=== PATIENT | female | born 2005 | race Caucasian/White ===

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

== ENCOUNTER 2023-03-02 06:06 | Emergency (ER) | payer MEDICAID ==
[~2023-03-02] VITALS: Ht 160 cm; Wt 59.1 kg
[~2023-03-02 06:06] MED LIST changes: +NITR100C6 PO; +PNV1CAPS PO
[2023-03-02 07:41] VITALS: BP 109/77
== END 2023-03-02 07:33 | disposition home or self-care (01) ==
LOC: ER 06:06
DX: O26.892 Other specified pregnancy related conditions, second trimester (principal); R10.9 Unspecified abdominal pain; Z3A.17 17 weeks gestation of pregnancy; Z79.899 Other long term (current) drug therapy; W18.39XA Other fall on same level, initial encounter; Y93.89 Activity, other specified; Y92.89 Other specified places as the place of occurrence of the external cause; Y99.8 Other external cause status
CPT/HCPCS: 99284

== ENCOUNTER 2023-03-17 20:42 | Emergency (ER) | payer MEDICAID ==
[~2023-03-17] VITALS: Ht 160 cm; Wt 56.8 kg
[2023-03-17] MEDS ORDERED: normal saline 1000ML IV soln IVB ONE (22:10)
[2023-03-17] MEDS ORDERED: meclizine 12.5mg tablet PO ONE (22:10)
[2023-03-17 22:14] VITALS: BP 97/54
[2023-03-17] MEDS ORDERED: carbamide peroxide 15ml bottle EACH EAR ONE (22:55)
[2023-03-17] MEDS ORDERED: MECL-159 PO (22:58)
== END 2023-03-17 23:56 | disposition home or self-care (01) ==
LOC: ER 20:42
DX: O26.892 Other specified pregnancy related conditions, second trimester (principal); R53.83 Other fatigue; H61.23 Impacted cerumen, bilateral; E86.0 Dehydration; Z79.899 Other long term (current) drug therapy; Z3A.20 20 weeks gestation of pregnancy
CPT/HCPCS: 82948; 99283; J7030; J8597

== ENCOUNTER 2023-12-29 00:38 | Emergency (ER) | payer MEDICAID ==
[~2023-12-29] VITALS: Ht 160 cm; Wt 67.7 kg
[~2023-12-29 00:38] MED LIST changes: +MECL-302 PO
[2023-12-29 01:02] VITALS: BP 124/78; PULSE 98; RESP 17; TEMP 99.4; O2SAT 100
[2023-12-29 01:14] LABS: EOSINOPHILS # (AUTO) 0.1 X10'3 (0-0.9); EOSINOPHILS % (AUTO) 1.7 % (0-6); MEAN PLATELET VOLUME 9.1 FL (7.4-10.4); MONOCYTES # (AUTO) 0.4 X10'3 (0-0.9); RED CELL DISTRIBUTION WIDTH 12.9 % (11.5-14.5)
[2023-12-29 01:17] LABS: BASOPHILS # (AUTO) 0.1 X10'3 (0-0.2); BASOPHILS % (AUTO) 0.9 % (0-1); HEMATOCRIT 40.7 % (35.0-45.0); HEMOGLOBIN 14.2 g/dl (12.0-16.0); LYMPHOCYTES # (AUTO) 2.8 X10'3 (1.1-4.8); LYMPHOCYTES % (AUTO) 39.3 % (21-51); MEAN CORPUSCULAR HEMOGLOBIN 31.1 PG (27.0-31.0); MEAN CORPUSCULAR HGB CONC 34.8 g/dL (33.0-36.5); MEAN CORPUSCULAR VOLUME 89.2 FL (78-98); MONOCYTES % (AUTO) 6.3 % (2-12); NEUTROPHILS # (AUTO) 3.7 X10'3 (1.8-7.7); NEUTROPHILS % (AUTO) 51.8 % (42-75); PLATELET COUNT 286 X10'3 (140-440); RED BLOOD COUNT 4.57 X10'6 (4.20-5.60); WHITE BLOOD COUNT 7.1 X10'3 (4.5-11.0)
[2023-12-29 01:26] LABS: GLUCOSE 97 MG/DL (70-104); POTASSIUM 3.5 MMOL/L (3.5-5.1); SODIUM 138 MMOL/L (135-145)
[2023-12-29 01:27] LABS: ALANINE AMINOTRANSFERASE 302 U/L (12-78); ALBUMIN 3.7 G/DL (3.4-5.0); ALBUMIN/GLOBULIN RATIO 0.9 (1.1-1.5); ALKALINE PHOSPHATASE 165 IU/L (20-180); ANION GAP 10 (8-16); ASPARTATE AMINO TRANSFERASE 120 U/L (10-37); BILIRUBIN,TOTAL 0.6 MG/DL (0.1-1.0); BLOOD UREA NITROGEN 10 MG/DL (7-18); BUN/CREATININE RATIO 15.9 (10.0-20.0); CALCIUM 9.2 MG/DL (8.5-10.1); CHLORIDE 105 MMOL/L (99-107); CREATININE 0.63 MG/DL (0.40-0.90); TOTAL CARBON DIOXIDE 23.2 MMOL/L (24-32); TOTAL PROTEIN 7.8 G/DL (6.4-8.2); eCRCL 118 ML/MIN; eGFR > 90 ML/MIN
[2023-12-29 01:33] LABS: PRO BRAIN NATRIURETIC PEPTIDE 36 PG/ML (0-125)
== END 2023-12-29 06:49 | disposition left against medical advice (07) ==
LOC: ER 00:38
DX: R07.89 Other chest pain (principal); Z53.21 Procedure and treatment not carried out due to patient leaving prior to being seen by health care provider
CPT/HCPCS: 80053; 83880; 84484; 85025; 93005; 99281

== ENCOUNTER 2024-01-08 21:41 | Emergency (ER) | payer MEDICAID ==
[~2024-01-08] VITALS: Ht 160 cm; Wt 67.4 kg
[2024-01-08] MEDS: Cipro HC otic suspension 10ML bottle LEFT EAR STA (22:40)
[2024-01-08 23:38] VITALS: BP 108/69; PULSE 81; RESP 16; TEMP 97.8; O2SAT 100
== END 2024-01-08 23:42 | disposition home or self-care (01) ==
LOC: ER 21:42
DX: H60.92 Unspecified otitis externa, left ear (principal); Z88.8 Allergy status to other drugs, medicaments and biological substances; Z79.899 Other long term (current) drug therapy
CPT/HCPCS: 99282

== ENCOUNTER 2024-02-28 09:47 | Emergency (ER) | payer MEDICAID ==
[~2024-02-28] VITALS: Ht 160 cm; Wt 68.3 kg
[2024-02-28 10:02] VITALS: BP 123/76; PULSE 89; RESP 18; TEMP 97.8; O2SAT 100
[2024-02-28] MEDS ORDERED: AMOX-117 PO (10:34)
[2024-02-28] MEDS ORDERED: HYDR-3965 PO (10:34)
== END 2024-02-28 11:03 | disposition home or self-care (01) ==
LOC: ER 09:48
DX: K04.7 Periapical abscess without sinus (principal); Z88.8 Allergy status to other drugs, medicaments and biological substances; Z79.899 Other long term (current) drug therapy
CPT/HCPCS: 99283

== ENCOUNTER 2024-04-13 06:19 | Inpatient (IN) | payer MEDICAID ==
[2024-04-13] VITALS (7 sets, daily range): BP systolic 101–129; BP diastolic 56–81; PULSE 14–99; RESP 14–16; TEMP 97.3–98.2; O2SAT 98–100
[~2024-04-13] VITALS: Ht 160 cm; Wt 70.5 kg
[2024-04-13 06:57] LABS: BASOPHILS # (AUTO) 0.1 X10'3 (0-0.2); BASOPHILS % (AUTO) 0.7 % (0-1); EOSINOPHILS # (AUTO) 0.1 X10'3 (0-0.9); EOSINOPHILS % (AUTO) 1.4 % (0-6); HEMATOCRIT 42.8 % (35.0-45.0); HEMOGLOBIN 14.7 g/dl (12.0-16.0); LYMPHOCYTES # (AUTO) 2.2 X10'3 (1.1-4.8); LYMPHOCYTES % (AUTO) 28.4 % (21-51); MEAN CORPUSCULAR HEMOGLOBIN 31.2 PG (27.0-31.0); MEAN CORPUSCULAR HGB CONC 34.4 g/dL (33.0-36.5); MEAN CORPUSCULAR VOLUME 90.8 FL (78-98); MEAN PLATELET VOLUME 8.9 FL (7.4-10.4); MONOCYTES # (AUTO) 0.5 X10'3 (0-0.9); MONOCYTES % (AUTO) 6.6 % (2-12); NEUTROPHILS # (AUTO) 4.8 X10'3 (1.8-7.7); NEUTROPHILS % (AUTO) 62.9 % (42-75); PLATELET COUNT 286 X10'3 (140-440); RED BLOOD COUNT 4.71 X10'6 (4.20-5.60); RED CELL DISTRIBUTION WIDTH 12.9 % (11.5-14.5); WHITE BLOOD COUNT 7.7 X10'3 (4.5-11.0)
[2024-04-13 07:03] LABS: URINE HCG NEGATIVE (NEG)
[2024-04-13 07:05] LABS: BILIRUBIN,URINE NEGATIVE (Neg); CLARITY,URINE CLEAR (Clear); COLOR,URINE YELLOW (Yellow); GLUCOSE, URINE NEGATIVE (Neg); KETONES,URINE NEGATIVE (Neg); LEUKOCYTE ESTERASE ,URINE SMALL (Neg); NITRITES, URINE NEGATIVE (Neg); OCCULT BLOOD,URINE NEGATIVE (Neg); PROTEIN,URINE NEGATIVE (Neg)
[2024-04-13 07:09] LABS: UA COLLECTION TYPE CLN CATCH MIDSTREAM
[2024-04-13 07:14] LABS: ALANINE AMINOTRANSFERASE 398 U/L (12-78); ALBUMIN 3.7 G/DL (3.4-5.0); ALBUMIN/GLOBULIN RATIO 0.9 (1.1-1.5); ALKALINE PHOSPHATASE 143 IU/L (46-116); ANION GAP 6 (8-16); ASPARTATE AMINO TRANSFERASE 285 U/L (10-37); BILIRUBIN,TOTAL 1.3 MG/DL (0.1-1.0); BLOOD UREA NITROGEN 8 MG/DL (7-18); BUN/CREATININE RATIO 13.3 (10.0-20.0); CALCIUM 8.8 MG/DL (8.5-10.1); CHLORIDE 106 MMOL/L (99-107); GLUCOSE 100 MG/DL (70-104); LIPASE 37 U/L (16-77); POTASSIUM 3.7 MMOL/L (3.5-5.1); SODIUM 138 MMOL/L (135-145); TOTAL CARBON DIOXIDE 25.8 MMOL/L (24-32); TOTAL PROTEIN 7.6 G/DL (6.4-8.2); eCRCL 123 ML/MIN; eGFR > 90 ML/MIN
[2024-04-13] MEDS: ondansetron/PF 4mg/2ml inj IV ONE (07:15)
[2024-04-13] MEDS: ringers solution, lacted 1,000 ML IV ONE (07:15)
[2024-04-13] MEDS: morphine 2 MG/ML inj. syringe IV PRN (07:17)
[2024-04-13 07:18] LABS: BACTERIA,URINE FEW /HPF (Neg); MUCUS STRANDS NONE SEEN /LPF (Neg); RBC,URINE NONE SEEN /HPF (0-2); SQUAMOUS EPITHELIAL CELL,UR MODERATE /LPF (FEW); WBC,URINE 0-4 /HPF (0-4)
[2024-04-13] MEDS ORDERED: acetaminophen 325mg tablet PO PRN (08:55)
[2024-04-13] MEDS ORDERED: magnesium 2GM in 50ml NS 50 ML IV PRN (08:55)
[2024-04-13] MEDS ORDERED: potassium Cl 20 mEq SR tablet PO PRN (08:55)
[2024-04-13] MEDS ORDERED: potassium Cl 40MEQ/1/2NS 520ml 520 ML IV PRN (08:55)
[2024-04-13] MEDS ORDERED: morphine 2 MG/ML inj. syringe IV PRN (08:55)
[2024-04-13] MEDS ORDERED: mag hydrox/Alum hydrox/simeth 30ml oral suspension PO PRN (08:55)
[2024-04-13] MEDS ORDERED: magnesium hydroxide 30ml (MOM) UD suspension PO PRN (08:55)
[2024-04-13] MEDS ORDERED: magnesium 4gm in 100ml NS 100 ML IV PRN (08:55)
[2024-04-13] MEDS: normal saline 1000ml 1,000 ML IV SCH (09:01)
[2024-04-13] MEDS: piperacillin/tazo 4.5gm/100ml 100 ML IV STA (10:02)
[2024-04-13] MEDS: ondansetron/PF 4mg/2ml inj IV PRN (18:13)
[2024-04-13] MEDS: K and/or MAG REPLACEMENT MC SCH (20:00)
[2024-04-13] MEDS: docusate sod 100mg capsule PO SCH (20:07)
[2024-04-13] MEDS: piperacillin/tazo 4.5gm/100ml 100 ML IV SCH (21:00)
[2024-04-14] VITALS (21 sets, daily range): BP systolic 102–122; BP diastolic 60–77; PULSE 65–106; RESP 14–23; TEMP 96.3–98.4; O2SAT 97–100
[2024-04-14 08:05] LABS: BASOPHILS # (AUTO) 0.1 X10'3 (0-0.2); BASOPHILS % (AUTO) 0.9 % (0-1); EOSINOPHILS # (AUTO) 0.1 X10'3 (0-0.9); EOSINOPHILS % (AUTO) 1.9 % (0-6); HEMOGLOBIN 13.6 g/dl (12.0-16.0); LYMPHOCYTES # (AUTO) 1.6 X10'3 (1.1-4.8); LYMPHOCYTES % (AUTO) 27.6 % (21-51); MEAN CORPUSCULAR HEMOGLOBIN 31.2 PG (27.0-31.0); MEAN CORPUSCULAR HGB CONC 33.9 g/dL (33.0-36.5); MEAN CORPUSCULAR VOLUME 91.9 FL (78-98); MONOCYTES # (AUTO) 0.3 X10'3 (0-0.9); MONOCYTES % (AUTO) 6.1 % (2-12); NEUTROPHILS # (AUTO) 3.6 X10'3 (1.8-7.7); NEUTROPHILS % (AUTO) 63.5 % (42-75); PLATELET COUNT 238 X10'3 (140-440); RED BLOOD COUNT 4.35 X10'6 (4.20-5.60); WHITE BLOOD COUNT 5.7 X10'3 (4.5-11.0)
[2024-04-14 08:25] LABS: ALANINE AMINOTRANSFERASE 388 U/L (12-78); ALBUMIN/GLOBULIN RATIO 0.9 (1.1-1.5); ALKALINE PHOSPHATASE 129 IU/L (46-116); ANION GAP 10 (8-16); ASPARTATE AMINO TRANSFERASE 157 U/L (10-37); BLOOD UREA NITROGEN 6 MG/DL (7-18); BUN/CREATININE RATIO 10.5 (10.0-20.0); CALCIUM 8.2 MG/DL (8.5-10.1); CHLORIDE 108 MMOL/L (99-107); CREATININE 0.57 MG/DL (0.40-0.90); GLUCOSE 71 MG/DL (70-104); MAGNESIUM 1.9 MG/DL (1.5-2.4); POTASSIUM 3.8 MMOL/L (3.5-5.1); SODIUM 138 MMOL/L (135-145); TOTAL CARBON DIOXIDE 19.8 MMOL/L (24-32); TOTAL PROTEIN 6.5 G/DL (6.4-8.2); eCRCL 129 ML/MIN; eGFR > 90 ML/MIN
[2024-04-14] MEDS: dextrose 50%-water 50ml dispensing syringe IV ONE (17:04)
[2024-04-14] MEDS ORDERED: BUPIVAcaine/PF 2.5mg/ml (0.25%) 10ml vial ONE (17:35)
[2024-04-14] MEDS ORDERED: midazolam 1 mg/ML 2ml injection ONE (17:46)
[2024-04-14] MEDS ORDERED: fentaNYL /PF 50mcg/ml 5ml ampule ONE (17:47)
[2024-04-14] MEDS ORDERED: sevoflurane 250ml liquid IH ONE (17:50)
[2024-04-14] MEDS ORDERED: labetalol 20mg/4ml (5mg/ml) syringe IV PRN (17:55)
[2024-04-14] MEDS ORDERED: ondansetron/PF 4mg/2ml inj IV PRN (17:55)
[2024-04-14] MEDS ORDERED: morphine 2 MG/ML inj. syringe IV PRN (17:55)
[2024-04-14] MEDS ORDERED: hydrALAZINE 20mg/ml inj. IV PRN (17:55)
[2024-04-14] MEDS: ringers solution, lacted 1,000 ML IV SCH (17:55)
[2024-04-14] MEDS ORDERED: morphine 4 MG/ML inj SYRINge IV PRN (17:55)
[2024-04-14] MEDS ORDERED: meperidine/PF 25mg/ml syringe IV PRN ×2 (17:55)
[2024-04-14] MEDS ORDERED: proCHLORperazine 10 MG/2 ml inj IV PRN (17:55)
[2024-04-14] MEDS: BUPIVAcaine/PF 5 MG/ML 10ML VIAL IJ ONE (18:25)
[2024-04-14] MEDS ORDERED: ondansetron/PF 4mg/2ml inj ONE (18:47)
[2024-04-14] MEDS ORDERED: rocuronium 10mg/ml inj IV ONE (18:47)
[2024-04-14] MEDS ORDERED: LIDOcaine 2% (20mg/ml) 5ml vial ONE (18:47)
[2024-04-14] MEDS ORDERED: ceFOXitin 1000 MG inj ONE ×2 (18:47)
[2024-04-14] MEDS ORDERED: propofol inj 20 ML IV ONE (18:47)
[2024-04-14] MEDS ORDERED: dexamethasone sod phosphate 4mg/ml inj. ONE (18:47)
[2024-04-14] MEDS ORDERED: neostigmine methylsulfate 1 MG/ML 10ml vial ONE (18:48)
[2024-04-14] MEDS ORDERED: glycopyrrolate 0.2mg/ml inj ONE (18:48)
[2024-04-14] MEDS: meperidine/PF 25mg/ml syringe IV PRN (19:12)
[2024-04-14] MEDS: acetaminophen 1,000mg/100ml IV 100 ML IV ONE (19:13)
[2024-04-14] MEDS: ketorolac trometh. 30mg/ml inj. IV ONE (19:15)
[2024-04-14] MEDS ORDERED: naloxone 0.4 mg/ml inj IV PRN (19:20)
[2024-04-15] VITALS (7 sets, daily range): BP systolic 108–119; BP diastolic 62–79; PULSE 64–103; RESP 15–20; TEMP 96.1–97.8; O2SAT 99–100
[2024-04-15] MEDS: morphine 2 MG/ML inj. syringe IV PRN (00:20)
[2024-04-15 08:45] LABS: BASOPHILS % (AUTO) 0.1 % (0-1); EOSINOPHILS % (AUTO) 0 % (0-6); HEMATOCRIT 39.5 % (35.0-45.0); HEMOGLOBIN 13.4 g/dl (12.0-16.0); LYMPHOCYTES # (AUTO) 0.9 X10'3 (1.1-4.8); LYMPHOCYTES % (AUTO) 7.9 % (21-51); MEAN CORPUSCULAR HEMOGLOBIN 30.9 PG (27.0-31.0); MEAN CORPUSCULAR HGB CONC 33.9 g/dL (33.0-36.5); MEAN CORPUSCULAR VOLUME 91.2 FL (78-98); MEAN PLATELET VOLUME 9.2 FL (7.4-10.4); MONOCYTES # (AUTO) 0.5 X10'3 (0-0.9); MONOCYTES % (AUTO) 4.1 % (2-12); NEUTROPHILS % (AUTO) 87.9 % (42-75); PLATELET COUNT 290 X10'3 (140-440); RED BLOOD COUNT 4.33 X10'6 (4.20-5.60); RED CELL DISTRIBUTION WIDTH 12.6 % (11.5-14.5); WHITE BLOOD COUNT 11.4 X10'3 (4.5-11.0)
[2024-04-15 09:09] LABS: ALANINE AMINOTRANSFERASE 291 U/L (12-78); ALBUMIN/GLOBULIN RATIO 0.8 (1.1-1.5); ALKALINE PHOSPHATASE 121 IU/L (46-116); ANION GAP 9 (8-16); ASPARTATE AMINO TRANSFERASE 81 U/L (10-37); BILIRUBIN,TOTAL 0.9 MG/DL (0.1-1.0); BLOOD UREA NITROGEN 4 MG/DL (7-18); BUN/CREATININE RATIO 6.6 (10.0-20.0); CALCIUM 8.5 MG/DL (8.5-10.1); CHLORIDE 107 MMOL/L (99-107); CREATININE 0.61 MG/DL (0.40-0.90); GLUCOSE 115 MG/DL (70-104); MAGNESIUM 1.9 MG/DL (1.5-2.4); POTASSIUM 4.2 MMOL/L (3.5-5.1); SODIUM 137 MMOL/L (135-145); TOTAL CARBON DIOXIDE 21.4 MMOL/L (24-32); TOTAL PROTEIN 6.8 G/DL (6.4-8.2); eCRCL 121 ML/MIN; eGFR > 90 ML/MIN
[2024-04-15] MEDS: HYDROcodone/acetaminophen 5mg/325mg tablet PO PRN (10:13)
[2024-04-15] MEDS: ondansetron/PF 4mg/2ml inj IV PRN (21:13)
[2024-04-16 06:00] VITALS: BP 109/71; PULSE 92; RESP 20; TEMP 96.6; O2SAT 100
[2024-04-16 07:27] LABS: BASOPHILS # (AUTO) 0.1 X10'3 (0-0.2); BASOPHILS % (AUTO) 0.7 % (0-1); EOSINOPHILS # (AUTO) 0.1 X10'3 (0-0.9); EOSINOPHILS % (AUTO) 0.8 % (0-6); HEMATOCRIT 37.8 % (35.0-45.0); HEMOGLOBIN 12.8 g/dl (12.0-16.0); LYMPHOCYTES # (AUTO) 2.4 X10'3 (1.1-4.8); LYMPHOCYTES % (AUTO) 32.8 % (21-51); MEAN CORPUSCULAR HEMOGLOBIN 31.3 PG (27.0-31.0); MEAN CORPUSCULAR HGB CONC 33.8 g/dL (33.0-36.5); MEAN CORPUSCULAR VOLUME 92.3 FL (78-98); MEAN PLATELET VOLUME 9.3 FL (7.4-10.4); MONOCYTES # (AUTO) 0.5 X10'3 (0-0.9); MONOCYTES % (AUTO) 6.1 % (2-12); NEUTROPHILS # (AUTO) 4.4 X10'3 (1.8-7.7); NEUTROPHILS % (AUTO) 59.6 % (42-75); PLATELET COUNT 244 X10'3 (140-440); WHITE BLOOD COUNT 7.3 X10'3 (4.5-11.0)
[2024-04-16 07:53] LABS: ALANINE AMINOTRANSFERASE 218 U/L (12-78); ALBUMIN/GLOBULIN RATIO 0.8 (1.1-1.5); ALKALINE PHOSPHATASE 98 IU/L (46-116); ANION GAP 10 (8-16); ASPARTATE AMINO TRANSFERASE 43 U/L (10-37); BILIRUBIN,TOTAL 0.8 MG/DL (0.1-1.0); BLOOD UREA NITROGEN 4 MG/DL (7-18); BUN/CREATININE RATIO 6.6 (10.0-20.0); CALCIUM 8.2 MG/DL (8.5-10.1); CHLORIDE 107 MMOL/L (99-107); CREATININE 0.61 MG/DL (0.40-0.90); GLUCOSE 86 MG/DL (70-104); MAGNESIUM 1.8 MG/DL (1.5-2.4); POTASSIUM 3.2 MMOL/L (3.5-5.1); SODIUM 141 MMOL/L (135-145); TOTAL CARBON DIOXIDE 23.7 MMOL/L (24-32); TOTAL PROTEIN 6.6 G/DL (6.4-8.2); eCRCL 121 ML/MIN; eGFR > 90 ML/MIN
[2024-04-16] MEDS: potassium Cl 20 mEq SR tablet PO PRN (08:50)
[2024-04-16 11:00] VITALS: BP 110/73; PULSE 79; RESP 16; TEMP 98.4; O2SAT 96
[2024-04-16] MEDS ORDERED: ONDA4TAB12 PO (11:04)
[2024-04-16] MEDS ORDERED: HYDR-3965 PO (18:05)
[2024-04-16] MEDS ORDERED: POTA-207 PO (18:13)
== END 2024-04-16 13:45 | disposition home or self-care (01) | DRG 263 ==
LOC: ER 06:20 → ED HOLD 08:58 → SUR 3N 18:40
PROVIDERS: ADMIT Family Medicine; ATTEND Family Medicine
PROC: 8E0W4CZ Robotic Assisted Procedure of Trunk Region, Percutaneous Endoscopic Approach (ICD-10-PCS; 2024-04-14)
PROC: 0FT44ZZ Resection of Gallbladder, Percutaneous Endoscopic Approach (ICD-10-PCS; principal; 2024-04-14 17:50)
DX: K80.00 Calculus of gallbladder with acute cholecystitis without obstruction (principal); E87.6 Hypokalemia; R74.01 Elevation of levels of liver transaminase levels; K82.8 Other specified diseases of gallbladder; Z88.8 Allergy status to other drugs, medicaments and biological substances; Z79.899 Other long term (current) drug therapy; Z82.49 Family history of ischemic heart disease and other diseases of the circulatory system
CPT/HCPCS: 36415; 74181; 76700; 80053; 81001; 81025; 82948; 83605; 83690; 83735; 85025; 87040; 87081; 87088; 96374; 96375; 99285; A4215; A4615; A4618; A6402; A7000; G0378; J0131; J0665; J0694; J1100; J1885; J2175; J2250; J2270; J2405; J2543; J2704; J2710; J3010; J3490; J7030; J7120

== ENCOUNTER 2024-04-18 15:03 | Emergency (ER) | payer MEDICAID ==
[~2024-04-18] VITALS: Ht 160 cm; Wt 68.2 kg
[~2024-04-18 15:03] MED LIST changes: +HYDR-3965 PO; -NITR100C6 PO; -NO HOME MEDS; +ONDA4TAB12 PO; +POTA-207 PO
[2024-04-18 15:12] VITALS: BP 108/77; PULSE 97; TEMP 98.8; O2SAT 98
[2024-04-18 17:26] VITALS: RESP 18
== END 2024-04-18 17:20 | disposition home or self-care (01) ==
LOC: ER 15:04
DX: R05.9 Cough, unspecified (principal); R06.02 Shortness of breath; Z88.8 Allergy status to other drugs, medicaments and biological substances
CPT/HCPCS: 71045; 74018; 99284

== ENCOUNTER 2024-05-12 15:50 | Emergency (ER) | payer MEDICAID ==
[~2024-05-12] VITALS: Ht 160 cm; Wt 68.6 kg
[2024-05-12 16:02] VITALS: BP 113/67; PULSE 86; RESP 16; TEMP 98.3; O2SAT 99
[2024-05-12] MEDS: bacitracin 15gm ointment TP ONE (16:42)
== END 2024-05-12 16:48 | disposition home or self-care (01) ==
LOC: ER 15:50
DX: R10.33 Periumbilical pain (principal); T81.89XA Other complications of procedures, not elsewhere classified, initial encounter; Z88.8 Allergy status to other drugs, medicaments and biological substances; Z79.899 Other long term (current) drug therapy; Z79.2 Long term (current) use of antibiotics
CPT/HCPCS: 99282

== ENCOUNTER 2024-05-26 23:25 | Emergency (ER) | payer MEDICAID ==
[~2024-05-26] VITALS: Ht 160 cm; Wt 68.2 kg
[2024-05-26 23:43] VITALS: BP 113/84; PULSE 82; RESP 14; TEMP 97.5; O2SAT 97
[2024-05-28] MEDS ORDERED: HYDR-3965 PO (12:00)
[2024-05-28] MEDS ORDERED: IBUP-1986 PO (12:07)
[2024-05-28] MEDS ORDERED: AMOX-580 PO ×2 (12:07→13:22)
[2024-05-28] MEDS ORDERED: HYDR-3973 PO (13:22)
== END 2024-05-27 01:40 | disposition left against medical advice (07) ==
LOC: ER 23:25
DX: K08.89 Other specified disorders of teeth and supporting structures (principal); R68.84 Jaw pain; Z53.21 Procedure and treatment not carried out due to patient leaving prior to being seen by health care provider

== ENCOUNTER 2024-05-28 07:55 | Emergency (ER) | payer MEDICAID ==
[~2024-05-28] VITALS: Ht 160 cm; Wt 67.5 kg
[2024-05-28] MEDS ORDERED: HYDR-3965 PO (12:00)
[2024-05-28] MEDS ORDERED: AMOX-580 PO ×2 (12:07→13:22)
[2024-05-28] MEDS ORDERED: IBUP-1986 PO (12:07)
[2024-05-28] MEDS ORDERED: HYDR-3973 PO (13:22)
[2024-05-28 13:29] VITALS: BP 120/78; PULSE 70; RESP 16; TEMP 98.5; O2SAT 99
== END 2024-05-28 13:32 | disposition home or self-care (01) ==
LOC: ER 07:56
DX: K08.89 Other specified disorders of teeth and supporting structures (principal); Z88.8 Allergy status to other drugs, medicaments and biological substances; Z79.1 Long term (current) use of non-steroidal anti-inflammatories (NSAID); Z79.2 Long term (current) use of antibiotics
CPT/HCPCS: 99283

== ENCOUNTER 2024-06-04 16:58 | Emergency (ER) | payer MEDICAID ==
[~2024-06-04] VITALS: Ht 160 cm; Wt 68.3 kg
[~2024-06-04 16:58] MED LIST changes: +ACET15SO14 LEFT EAR; +ACET15SO14 RIGHT EAR; +AMOX-117 PO; +AMOX-580 PO; -CARB15DR91 EACH EAR; +CIPR10DR EACH EAR; +IBUP-1986 PO; -MECL-302 PO; -ONDA4TAB12 PO; -PNV1CAPS PO; -POTA-207 PO
[2024-06-04 17:00] VITALS: BP 116/67; PULSE 98; RESP 16; TEMP 98.4; O2SAT 98
[2024-06-04] MEDS ORDERED: NEOM10DR45 RIGHT EAR (17:34)
[2024-06-04] MEDS ORDERED: ONDA-245 PO (17:34)
== END 2024-06-04 17:44 | disposition home or self-care (01) ==
LOC: ER 16:59
DX: H60.91 Unspecified otitis externa, right ear (principal); Z88.8 Allergy status to other drugs, medicaments and biological substances; Z79.899 Other long term (current) drug therapy; Z79.2 Long term (current) use of antibiotics
CPT/HCPCS: 99283

== ENCOUNTER 2024-06-23 09:32 | Emergency (ER) | payer MEDICAID ==
[~2024-06-23] VITALS: Ht 160 cm; Wt 68.5 kg
[~2024-06-23 09:32] MED LIST changes: -AMOX-117 PO; -CIPR10DR EACH EAR; -HYDR-3965 PO; +ONDA-245 PO
[2024-06-23 09:44] VITALS: BP 122/84; PULSE 78; TEMP 97.2; O2SAT 99
[2024-06-23] MEDS ORDERED: AMOX-580 PO (09:54)
[2024-06-23] MEDS ORDERED: HYDR-3965 PO (09:54)
[2024-06-23] MEDS: HYDROcodone/acetaminophen 5mg/325mg tablet PO ONE (09:56)
[2024-06-23 10:25] VITALS: RESP 16
[2024-06-23] MEDS: ketorolac trometh. 30mg/ml inj. IM ONE (10:25)
== END 2024-06-23 10:48 | disposition home or self-care (01) ==
LOC: ER 09:32
DX: K04.7 Periapical abscess without sinus (principal); K08.89 Other specified disorders of teeth and supporting structures; Z88.8 Allergy status to other drugs, medicaments and biological substances; Z79.2 Long term (current) use of antibiotics; Z79.1 Long term (current) use of non-steroidal anti-inflammatories (NSAID); Z79.899 Other long term (current) drug therapy
CPT/HCPCS: 96372; 99283; J1885

== ENCOUNTER 2024-07-25 04:01 | Emergency (ER) | payer MEDICAID ==
[~2024-07-25] VITALS: Ht 160 cm; Wt 68.2 kg
[~2024-07-25 04:01] MED LIST changes: -AMOX-580 PO
[2024-07-25] MEDS: normal saline 1000ml 1,000 ML IV ONE (04:48)
[2024-07-25] MEDS: famotidine/PF 10 mg/ml inj IV ONE (04:48)
[2024-07-25] MEDS: ketorolac trometh 15mg/ml vial 15 MG/ML ML IV ONE (04:48)
[2024-07-25] MEDS: ondansetron/PF 4mg/2ml inj IV ONE (04:49)
[2024-07-25] MEDS: mag hydrox/Alum hydrox/simeth 30ml oral suspension PO ONE (04:49)
[2024-07-25] MEDS: LIDOcaine 2% Viscous 15ml cup MM ONE (04:49)
[2024-07-25 04:50] LABS: BASOPHILS % (AUTO) 0.2 % (0-1); EOSINOPHILS # (AUTO) 0.1 X10'3 (0-0.9); EOSINOPHILS % (AUTO) 0.6 % (0-6); HEMATOCRIT 43.6 % (35.0-45.0); HEMOGLOBIN 15.1 g/dl (12.0-16.0); LYMPHOCYTES # (AUTO) 1.6 X10'3 (1.1-4.8); MEAN CORPUSCULAR HEMOGLOBIN 31.3 PG (27.0-31.0); MEAN CORPUSCULAR HGB CONC 34.6 g/dL (33.0-36.5); MEAN CORPUSCULAR VOLUME 90.7 FL (78-98); MEAN PLATELET VOLUME 8.9 FL (7.4-10.4); MONOCYTES # (AUTO) 0.5 X10'3 (0-0.9); MONOCYTES % (AUTO) 3.8 % (2-12); NEUTROPHILS # (AUTO) 11.4 X10'3 (1.8-7.7); NEUTROPHILS % (AUTO) 83.4 % (42-75); PLATELET COUNT 323 X10'3 (140-440); RED CELL DISTRIBUTION WIDTH 12.4 % (11.5-14.5); WHITE BLOOD COUNT 13.7 X10'3 (4.5-11.0)
[2024-07-25 05:03] LABS: ALANINE AMINOTRANSFERASE 48 U/L (12-78); ALBUMIN/GLOBULIN RATIO 0.9 (1.1-1.5); ALKALINE PHOSPHATASE 95 IU/L (46-116); ANION GAP 13 (8-16); ASPARTATE AMINO TRANSFERASE 22 U/L (10-37); BILIRUBIN,TOTAL 0.6 MG/DL (0.1-1.0); BLOOD UREA NITROGEN 12 MG/DL (7-18); BUN/CREATININE RATIO 16.7 (10.0-20.0); CALCIUM 9.7 MG/DL (8.5-10.1); CHLORIDE 107 MMOL/L (99-107); CREATININE 0.72 MG/DL (0.40-0.90); GLUCOSE 104 MG/DL (70-104); LIPASE 26 U/L (16-77); POTASSIUM 3.4 MMOL/L (3.5-5.1); SODIUM 141 MMOL/L (135-145); TOTAL CARBON DIOXIDE 20.7 MMOL/L (24-32); TOTAL PROTEIN 8.4 G/DL (6.4-8.2); eCRCL 102 ML/MIN; eGFR > 90 ML/MIN
[2024-07-25 05:38] LABS: URINE HCG NEGATIVE (NEG)
[2024-07-25 05:44] LABS: BILIRUBIN,URINE NEGATIVE (Neg); CLARITY,URINE SLIGHTLY CLOUDY (Clear); COLOR,URINE YELLOW (Yellow); GLUCOSE, URINE NEGATIVE (Neg); KETONES,URINE NEGATIVE (Neg); LEUKOCYTE ESTERASE ,URINE TRACE (Neg); NITRITES, URINE NEGATIVE (Neg); OCCULT BLOOD,URINE NEGATIVE (Neg); PROTEIN,URINE NEGATIVE (Neg); UROBILINOGEN,URINE 0.2 E.U/dL (0.2-1.0)
[2024-07-25 05:50] LABS: UA COLLECTION TYPE CLN CATCH MIDSTREAM
[2024-07-25] MEDS ORDERED: FAMO-129 PO (05:51)
[2024-07-25 05:52] LABS: BACTERIA,URINE FEW /HPF (Neg); RBC,URINE 0-2 /HPF (0-2)
[2024-07-25 05:56] LABS: SQUAMOUS EPITHELIAL CELL,UR MANY /LPF (FEW)
[2024-07-25] MEDS: proCHLORperazine 10 MG/2 ml inj IV ONE (06:06)
[2024-07-25] MEDS: pantoprazole 40mg Tablet.DR PO ONE (06:06)
[2024-07-25 06:17] VITALS: BP 109/69; PULSE 83; RESP 14; TEMP 98.5; O2SAT 100
== END 2024-07-25 06:19 | disposition home or self-care (01) ==
LOC: ER 04:02
DX: K29.00 Acute gastritis without bleeding (principal); Z88.8 Allergy status to other drugs, medicaments and biological substances; Z79.899 Other long term (current) drug therapy; Z79.1 Long term (current) use of non-steroidal anti-inflammatories (NSAID); Z90.49 Acquired absence of other specified parts of digestive tract
CPT/HCPCS: 36415; 80053; 81001; 81025; 83690; 84145; 85025; 87088; 96361; 96374; 96375; 99284; J0780; J1885; J2405; J3490; J7030

== ENCOUNTER 2025-10-24 14:46 | Emergency (ER) | payer MEDICAID ==
[~2025-10-24] VITALS: Ht 160 cm; Wt 70.1 kg
[~2025-10-24 14:46] MED LIST changes: +FAMO-129 PO; +ONDA-243 PO; +PNV1TABL75 PO
--- NOTE | 2025-10-24 15:08 | Physician Documentation ---
History of Present Illness ~ Chief Complaint: Ear Pain Stated Complaint: EAR PAIN Time Seen by MD: 14:58 Primary Medical Doctor: [facility] HPI 20-year-old female reports left greater than right ear pain for several days. Reports prior history of the same requiring drops. Mild decrease in hearing. No specific B symptoms. Reports recent URI symptoms. No recent trauma. Medication Reconciliation Allergies: Coded Allergies: doxycycline (Verified Allergy, Severe, HIVES, 10/24/25) sumatriptan (Verified Allergy, Unknown, anaphylaxis, 10/24/25) Scheduled Acetic Acid (Acetic Acid), 4 DROP LEFT EAR Q12H Acetic Acid (Acetic Acid), 4 DROP RIGHT EAR Q12H Ciprofloxacin Hcl/Hc Otic Susp* (Cipro Hc Otic Susp*), 3 DROP LEFT EAR Q12H Famotidine (Pepcid), 1 TAB PO Q12H Ibuprofen (Ibuprofen), 1 TAB PO Q8H Ibuprofen (Ibuprofen), 1 TAB PO Q8H Ondansetron 8mg ODT (Ondansetron Odt), 1 TAB PO Q6H Pnv No.122/Iron/Folic Acid ( Multi Tablet), 1 TAB PO DAILY Scheduled PRN Ibuprofen* (Motrin*), 1 TAB PO Q6H PRN PRN for pain or fever ONDANSETRON ODT 4mg tablet (Ondansetron Odt), 0.5 TAB PO Q6H PRN PRN for nausea/vomiting Past Medical History Past Medical History: No Pertinent History Past Surgical History: noncontributory Patient History: FH: heart disease MOTHER (HEART PALPITATIONS AND MURMUR) Maternal grandmother, Name: HEART PALPITATIONS AND MURMUR (HEART PALPITATIONS AND MURMUR,htN RAISED BY MATERNAL GRANDPARENTS) Maternal grandfather DAD SEEN X1 (STOMACH ISSUE,ULCERS.HTN) Alcohol Use: None Drug Use: none Lives with: Spouse Lives In: Home Physical Exam Vital Signs: RN Vital Signs have been reviewed: Yes, Temperature: 97.8, Source: Oral, Heart Rate: 89, Respiratory Rate: 18, BP: 109/79, Pulse Oximetry: 97, Weight: 70.100 Oxygen Flow Rate: 0 General Appearance: alert, WD/WN Eye Lid: normal inspection Conjunctiva: normal inspection Cornea: normal inspection Pupils/EOM/Fundus: PERRLA Ear: erythema, swelling, tenderness; No: foreign body Nose: normal inspection Mouth/Throat: normal mouth inspection Head: normal inspection (No mastoid tenderness) Respiratory: lungs clear Chest: no accessory muscle use Cardiovascular: normal peripheral pulses Skin: normal color Progress Results/Orders Results/Orders Vital Signs 10/24/25 10/24/25 14:50 15:26 Temp 97.8 97.8 Pulse 89 78 Resp 18 18 B/P (MAP) 109/79 132/72 Pulse Ox 97 99 O2 Flow Rate 0 Medical Decision Making Additional information obtaine: N/A Findings Examination history consistent with acute otitis externa not requiring a week. No clinical suspicion for mastoiditis and/or malignant otitis. Patient's safely discharged with outpatient management. Ear Diff. Dx: Considerations: Include: Abrasion, Cerumen impaction, Foreign body, Otitis externa, Barotrauma, Otitis media, Perforation, Referred pain- dental, Referred pain-pharyngitis, Referred pain-sinusitis, Referred pain-TMJ syn., Tympanic Membrane Injury, Other Eye Diff. Dx: Considerations: Include: Other Nose Diff. Dx: Considerations: Include: Other Tooth Diff. Dx: Considerations: Include: Other Throat Diff Dx: Considerations: Include: Other (Noncontributory noncontributory) Departure Disposition: HOME / SELF CARE / HOMELESS Impression: Primary Impression: Otitis externa Qualified Codes: H60.502 - Unspecified acute noninfective otitis externa, left ear Condition: Stable Additional Instructions: Please begin drops as directed and make follow up appointment with the primary care physician and return to the emergency department if symptoms worsen. Thank you for visiting [facility]. Have a happy Thanksgiving. Referrals: NO PRIMARY CARE PROVIDER (PCP) Prescriptions Ibuprofen* (Motrin*) 400 Mg Tablet 1 TAB PO Q6H PRN PRN for pain or fever for 5 Days, #20 TAB Prov: PIERCE BYRNE PAC 10/24/25 Ciprofloxacin Hcl/Hc Otic Susp* (Cipro Hc Otic Susp*) 10 Ml Bottle 3 DROP LEFT EAR Q12H for 7 Days, #10 ML Prov: PIERCE BYRNE PAC 10/24/25 Education Educated: Patient Educated regarding: diagnosis, treatment, prognosis, need for follow up Signature Scribe Signature: . Attestation: . PIERCE BYRNE PAC Oct 24, 2025 15:08
[2025-10-24] MEDS ORDERED: IBUP-1984 PO (15:21)
[2025-10-24] MEDS ORDERED: CIPR10DR LEFT EAR (15:21)
[2025-10-24 15:26] VITALS: BP 132/72; PULSE 78; RESP 18; TEMP 97.8; O2SAT 99
[2025-10-26] MEDS ORDERED: AZIT-164 PO (14:17)
[2025-10-26] MEDS ORDERED: ALBU8HFA INH (14:18)
== END 2025-10-24 15:30 | disposition home or self-care (01) ==
LOC: ER 14:47
DX: H60.92 Unspecified otitis externa, left ear (principal); Z88.1 Allergy status to other antibiotic agents; Z79.899 Other long term (current) drug therapy
CPT/HCPCS: 99283